=== PATIENT | female | born 1955 | race Caucasian/White ===

== ENCOUNTER → 2021-06-05 | Outpatient (CLI) | payer MEDICARE, OTHER ==
--- NOTE | 2021-06-09 12:12 | MM ---
Reason for exam: screening (asymptomatic). History: Patient is postmenopausal and has history of other cancer at age 65. Family history of breast cancer in maternal aunt and breast cancer in maternal cousin. Took hormonal contraceptives for 8 years. Physical Findings: A clinical breast exam by your physician is recommended on an annual basis and results should be correlated with mammographic findings. MG 3D Screening Mammo W/Cad Bilateral CC and MLO view(s) were taken. No prior studies available for comparison. The breast tissue is heterogeneously dense. This may lower the sensitivity of mammography. There is no discrete abnormality. A few small benign oil cyst calcifications. ASSESSMENT: Benign, BI-RAD 2 RECOMMENDATION: Routine screening mammogram of both breasts in 1 year.
== END | disposition home or self-care (01) ==
LOC: RADMAMWWP 10:02
PROVIDERS: ATTEND Family Medicine
DX: Z12.31 Encounter for screening mammogram for malignant neoplasm of breast (principal); Z78.0 Asymptomatic menopausal state; Z79.3 Long term (current) use of hormonal contraceptives; Z85.9 Personal history of malignant neoplasm, unspecified; Z80.3 Family history of malignant neoplasm of breast
CPT/HCPCS: 77063; 77067

== ENCOUNTER → 2022-03-24 | Outpatient (CLI) | payer MEDICARE, OTHER ==
--- NOTE | 2022-03-25 04:36 | MR ---
EXAMINATION TYPE: MR brain wo/w con DATE OF EXAM: 03/24/2022 COMPARISON: 12/29/2021 HISTORY: F/U, secondary malignant neoplasm of brain CONTRAST: Standard multiplanar, multisequence MRI departmental protocol images were obtained without contrast a nd with 7.5 mL intravenous Gadavist gadolinium contrast. There is 10 mm somewhat rounded area of increased signal on the diffusion images at the right posteri or parietal convexity. On the FLAIR images there is 2.6 cm somewhat rounded area of increased signal at the right cerebellar hemisphere close to the cerebellar peduncle. There is 2.1 cm Area of increase d signal at the right posterior parietal convexity at the scott-white matter junction. There is 2.3 cm area of irregular edema in the left parietal convexity. Contrast images show 9 mm ring-enhancing lesion in the right cerebellar hemisphere in the area of tad ma. There is 5 mm ring-enhancing lesion right posterior parietal convexity. There is possible 7 mm ri ng-enhancing lesion in the left posterior parietal convexity at the meninges. There is a small 3 mm a javed of enhancement in the left parietal convexity area of edema. There is normal enhancement of the venous sinuses. IMPRESSION: Multiple enhancing intra-axial lesions are demonstrated which appear slightly increased compared to t his exam and consistent with progression of metastatic disease.
== END | disposition home or self-care (01) ==
LOC: RADMRIMAIN 09:20
PROVIDERS: ATTEND Radiology Radiation Oncology
DX: C79.31 Secondary malignant neoplasm of brain (principal); C80.1 Malignant (primary) neoplasm, unspecified
CPT/HCPCS: 70553; A9585